=== PATIENT | female | born 2005 | race Caucasian/White ===

== ENCOUNTER 2023-11-26 17:49 | Emergency (ER) | payer SELFPAY ==
[~2023-11-26] VITALS: Ht 149.9 cm; Wt 52.6 kg
[2023-11-26 18:17] VITALS: BP_SYST 125; BP_DIAS 72; BP_DIAS 75; PULSE 74; RESP 18; TEMP 98.4; O2SAT 100
[2023-11-26] MEDS ORDERED: TORADOL ONE (18:34)
[2023-11-26] MEDS ORDERED: BOOSTRIX IM ONE (18:35)
[2023-11-26] MEDS: TORADOL IM STA (18:57)
[2023-11-26] MEDS: BOOSTRIX IM ONE (18:57)
[2023-11-26 19:32] VITALS: BP 118/71; PULSE 76; RESP 18; TEMP 98.4; O2SAT 100
== END 2023-11-26 19:35 | disposition home or self-care (01) ==
LOC: ER 17:49
DX: S00.93XA Contusion of unspecified part of head, initial encounter (principal); S09.90XA Unspecified injury of head, initial encounter; X58.XXXA Exposure to other specified factors, initial encounter; Y93.89 Activity, other specified; Y92.89 Other specified places as the place of occurrence of the external cause; Y99.8 Other external cause status
CPT/HCPCS: 99285; 70450; 71045; 90471; 96372; 90715; J1885